=== PATIENT | female | born 1965 | race Two or more races ===

== ENCOUNTER 2022-11-26 15:59 | Emergency (ER) | payer MEDICAID, SELFPAY ==
[2022-11-26 16:06] VITALS: BP 198/90; PULSE 76; O2SAT 98
[2022-11-26 16:35] VITALS: BP 196/79; PULSE 78; RESP 18; TEMP 36.9; O2SAT 98; BMI 24.0
--- NOTE | 2022-11-26 16:38 | ED.GENADULT ---
HPI - General Adult General Chief complaint: General Medical Stated complaint: Hypertension, bp 198/90 Related Data Allergies Allergy/AdvReac Type Severity Reaction Status Date / Time No Known Allergies Allergy Unverified 11/03/19 15:49 [facility] Social History Social History Advance Directives: No Advance Directives Information Provided: No Physical Exam ED Vital Signs: BMI result Body Mass Index 24.0 Course Course Course Narrative: This is an RME: Additional HPI, ROS, PE not included below will be deferred to primary provider. This is a 47-[id number]-iot-female presenting to the ER with a complaint of hypertension and anxiety x 2 days. She states that she ran out of her medications 2 days ago. No chest pain or shortness of breath. Patient states that she has had increased anxiety and PTSD as her has been recently cut off her leg with a machete. Plan: Basic labs further ER evaluation needed. Reevaluation(s) Reevaluation #1: pt eloped prior to being fully evaluated by primary provider. Medical Decision Making Lab Data 11/26/22 17:14 11/26/22 17:14 Labs: Lab Results 11/26/22 Range/Units 17:14 WBC 9.8 (4.8-10.8) X10*3/uL RBC 4.36 (4.20-5.50) X10*6/uL Hgb 12.1 (12.0-16.0) g/dl Hct 36.8 L (37.0-47.0) % MCV 84.4 (80.0-98.0) fL MCH 27.8 (27.0-33.0) pg MCHC 32.9 (31.0-35.0) g/dl RDW 13.8 (11.0-16.0) % Plt Count 337 (160-400) X10*3/uL MPV 10.5 (9.4-12.3) fL Immature Gran % (Auto) 0.4 (0.0-0.4) % Neut % (Auto) 62.5 (45-73) % Lymph % (Auto) 28.2 (20-40) % Crook % (Auto) 5.9 (2-11) % Eos % (Auto) 2.2 (0-4) % Baso % (Auto) 0.8 (0-2) % Lymph # (Auto) 2.8 (1.2-4.9) X10*3/uL Crook # (Auto) 0.6 (0.1-1.2) X10*3/uL Eos # (Auto) 0.2 (0.0-0.4) X10*3/uL Baso # (Auto) 0.1 (0.0-0.2) X10*3/uL Abs Immat Gran (auto) 0.04 H (0.00-0.03) X10*3/uL Absolute Neuts (auto) 6.1 (2.0-8.3) x10*3/uL Absolute Nucleated RBC 0.000 (0.0-0.012) X10*3/uL Nucleated RBC % (auto) 0.0 (0.0-0.2) /100WBC Sodium 141 (135-145) mmol/L Potassium 4.1 (3.3-5.1) mmol/L Chloride 107 (96-108) mmol/L Carbon Dioxide 23 (22-29) mmol/L Anion Gap 15 (12-20) BUN 12 (9-16) mg/dL Creatinine 0.73 (0.5-1.4) mg/dL Estim Creat Clear Calc 75.1 Estimated GFR > 60 Random Glucose 100 (60-115) mg/dL Calcium 10.6 H (8.4-10.2) mg/dL Total Bilirubin 0.2 (0.0-1.0) mg/dL Direct Bilirubin < 0.2 (0.0-0.5) mg/dL AST 15 (5-31) U/L ALT 20 (0-31) U/L Alkaline Phosphatase 122 H (39-117) U/L Total Protein 8.6 H (6.5-8.0) g/dL Albumin 4.7 (3.5-5.0) g/dL Discharge Plan Discharge Clinical Impression: Anxiety Patient Disposition: Left W/O Completing Treatment Discharge Date/Time: 11/26/22 20:41
[2022-11-26 17:20] LABS: MANUAL DIFF FLAG NO
[2022-11-26 17:21] LABS: Basophils Absolute Auto 0.1 X10*3/uL (0.0-0.2); Basophils Percent Auto 0.8 % (0-2); Eosinophils Absolute Auto 0.2 X10*3/uL (0.0-0.4); Eosinophils Percent Auto 2.2 % (0-4); Hematocrit 36.8 % (37.0-47.0); Hemoglobin 12.1 g/dl (12.0-16.0); Imm Gran Abs Auto 0.04 X10*3/uL (0.00-0.03); Imm Gran Pct Auto 0.4 % (0.0-0.4); Lymphocytes Absolute Auto 2.8 X10*3/uL (1.2-4.9); Lymphocytes Percent Auto 28.2 % (20-40); Mean Corpuscular HGB Conc 32.9 g/dl (31.0-35.0); Mean Corpuscular Hemoglobin 27.8 pg (27.0-33.0); Mean Corpuscular Volume 84.4 fL (80.0-98.0); Mean Platelet Volume 10.5 fL (9.4-12.3); Monocytes Absolute Auto 0.6 X10*3/uL (0.1-1.2); Monocytes Percent Auto 5.9 % (2-11); Neutrophils Absolute Auto 6.1 x10*3/uL (2.0-8.3); Neutrophils Percent Auto 62.5 % (45-73); Platelet Count 337 X10*3/uL (160-400); Red Blood Count 4.36 X10*6/uL (4.20-5.50); Red Cell Distribution Width 13.8 % (11.0-16.0); White Blood Count 9.8 X10*3/uL (4.8-10.8)
[2022-11-26 17:35] LABS: Alanine Aminotransferase 20 U/L (0-31); Albumin Level 4.7 g/dL (3.5-5.0); Alkaline Phosphatase 122 U/L (39-117); Anion Gap 15 (12-20); Aspartate Amino Transferase 15 U/L (5-31); Bilirubin Direct < 0.2 mg/dL (0.0-0.5); Bilirubin Total 0.2 mg/dL (0.0-1.0); Blood Urea Nitrogen 12 mg/dL (9-16); Calcium 10.6 mg/dL (8.4-10.2); Carbon Dioxide 23 mmol/L (22-29); Chloride 107 mmol/L (96-108); Creatinine Clr Calc Pharmacy 75.1; Estimated Glomerular Filt Rate > 60; Glucose Random 100 mg/dL (60-115); Potassium 4.1 mmol/L (3.3-5.1); Sodium 141 mmol/L (135-145); Total Protein 8.6 g/dL (6.5-8.0)
[2022-11-26 19:35] VITALS: BP 178/88; PULSE 74; RESP 20; TEMP 36.6; O2SAT 94
== END 2022-11-26 20:41 | disposition left against medical advice (07) ==
PROVIDERS: Physician Assistant Medical; Emergency Provider Emergency Medicine
DX: F41.1 Generalized anxiety disorder (principal); F43.0 Acute stress reaction; Z79.899 Other long term (current) drug therapy
CPT/HCPCS: 36415; 80048; 80076; 85025; 99281; 99283

== ENCOUNTER 2024-10-25 16:35 | Emergency (ER) | payer MEDICAID, SELFPAY ==
[2024-10-25] VITALS (13 sets, daily range): BP systolic 118–191; BP diastolic 52–103; PULSE 60–69; RESP 9–20; TEMP 36.7–36.8; O2SAT 96–100; BMI 22.5
--- NOTE | ~2024-10-25 | XR_ITS ---
CLINICAL HISTORY: deformity Two views of the left elbow. COMPARISON: None provided. FINDINGS: There is anterior dislocation of the distal humerus from the proximal ulna. Mildly displaced fracture of the radial head and neck. Distal humerus and ulna appear intact. IMPRESSION: 1. Mildly displaced fracture of the radial head and neck. 2. Anterior dislocation of the distal humerus from the ulna. This document has been electronically signed by: Samir Gutiérrez MD on 10/25/2024 18:54:51
--- NOTE | ~2024-10-25 | XR_ITS ---
CLINICAL HISTORY: post reduction Three views of the left elbow. COMPARISON: XR left elbow dated 10/25/24 at 18:24 EDT FINDINGS: Interval reduction of the distal humerus now appropriately seated within the ulna. Distal humerus and ulna appear intact. Displaced longitudinal fracture of the radial head. There is displacement anteriorly by approximately 3 mm. Small bone fragment present along the anterior aspect of the elbow joint measuring 2 mm favored to originates from the radial head fracture. Radiocapitellar alignment appears maintained. Elevation of the anterior and posterior fat pads. IMPRESSION: 1. Interval reduction of the humerus now appropriately seated within the ulna. 2. Displaced radial head fracture. Small bone fragment present along the anterior aspect of the joint space likely originates from the radial head. This document has been electronically signed by: Samir Gutiérrez MD on 10/25/2024 20:36:00
--- NOTE | 2024-10-25 17:14 | PC.NURSE ---
Patient presents from home via EMS. History of a Left BKA. Patient was attempting to transfer from her W/C to the toilet when she slipped and landed on her left arm. Positive deformity noted to her left elbow. Positive radial pulse with good CSM. Respirations even and non-labored. Abdomen soft, non-tender with positive bowel sounds.
--- NOTE | 2024-10-25 18:40 | ED_ITS ---
HPI - General Adult General Chief complaint: General Medical Stated complaint: Fall wheelchair, L elbow deformity -LOC, -Thinner Time Seen by Provider: 10/25/24 16:47 History of Present Illness ED Provider: jay HPI narrative: 59 F with ROHIT fell from wheelchair forward onto the left forearm sustaining injury to the left elbow with severe pain no head strike. She forgot to put the brakes on 1 of the wheels of the wheelchair this is why she flung forward. Related Data Allergies Allergy/AdvReac Type Severity Reaction Status Date / Time No Known Allergies Allergy Verified 10/25/24 16:48 Physical Exam ED Exam Exam: EXAM: Gen: Alert, awake, appears in significant pain Head: Atraumatic Eyes: Anicteric, Normal conjunctiva. ENT: Moist mucosa, no pallor. ? Neck: Supple. Skin: ?No observable rash or bruising on exposed or examined skin Respiratory: Breathing comfortably, No distress.Clear to auscultation bilaterally, symmetric chest expansion, No wheeze, rales, ronchi. Cardiovascular: Regular rate and rhythm. No murmurs or rub. Well perfused periphery, warm extremities. No edema. ? Abdominal: No focal tenderness. Soft, no objective distension. No palpable masses or obvious organomegaly. ?No guarding, no rebound tenderness or other p eritoneal findings. : No flank tenderness. Neuro: Alert. Gross movement of all extremities intact. ? Psych: Calm. Cooperative. MSK: No grossly visible deformity. Left BKA. Left upper extremity: Pain with deformity of the left elbow with tenderness. Soft compartments in the forearm. Elbow exam consistent with posteriorly displaced elbow dislocation Vital signs: See flowsheet Vital Signs: Vital Signs - 24 hr 10/25/24 16:48 10/25/24 18:00 10/25/24 19:49 Temperature 98.3 F 98.1 F Pulse Rate 60 68 65 Respiratory Rate 20 20 20 Blood Pressure 118/57 L 118/57 L 163/64 H Pulse Oximetry 98 97 96 Oxygen Delivery Method Room Air Room Air 10/25/24 19:57 10/25/24 20:00 10/25/24 20:01 Temperature Pulse Rate 68 66 67 Respiratory Rate 9 L 10 L 11 L Blood Pressure 145/52 H 184/88 H 191/81 H Pulse Oximetry 97 96 98 Oxygen Delivery Method 10/25/24 20:02 10/25/24 20:06 10/25/24 20:09 Temperature 98.1 F 98.1 F Pulse Rate 69 68 67 Respiratory Rate 12 18 12 Blood Pressure 159/90 H 140/103 H 146/79 H Pulse Oximetry 98 99 100 Oxygen Delivery Method 10/25/24 20:16 10/25/24 21:46 10/25/24 21:50 Temperature 98.1 F 98.1 F 98.1 F Pulse Rate 67 67 67 Respiratory Rate 16 16 16 Blood Pressure 146/86 H 122/78 122/78 Pulse Oximetry 100 100 100 Oxygen Delivery Method Room Air Room Air Room Air BMI result Body Mass Index 22.5 Medications Administered Discontinued Medications Generic Name Dose Route Start Last Admin Trade Name Freq PRN Reason Stop Dose Admin Etomidate 10 mg 10/25/24 18:42 10/25/24 19:49 Etomidate 20 Mg/10 Ml Vial IVPUSH 10/25/24 18:43 10 mg ONCE ONE Administration Procedures Procedure Narrative Procedure Narrative: PROCEDURE NOTE Procedure: Joint reduction Performed by: Lorenzo Shay MD Indication: dislocation of left elbow Crucible Protocol: a time out was performed and the correct patient and site were verified Procedure: Neurovascular exam intact prior to joint reduction. Anesthesia/pain control with etomidate 10 mg . Reduction of the left elbow was accomplished via traction and direct manipulation . The joint was immobilized with a splint. Neurovascular exam intact after joint reduction. The patient tolerated the procedure well. Post reduction films obtained and demonstrated an adequate reduction. Complications: none ___ Procedure: Splint Placement Performed by: Lorenzo Shay MD Indication: Radial head fracture and olecranon dislocation ? The elbow was appropriately positioned. An orthoglass splint was applied. The elbow was neurovascularly intact following the procedure. The patient tolerated the procedure well. ___ PROCEDURE NOTE Procedure: Procedural Sedation Performed by:Lorenzo Shay MD Indications: Elbow reduction Crucible Protocol: a time out was performed and the correct patient and site were verified ? ASA Class: II Pre-anesthesia evaluation, including history, exam, and informed consent is documented in the ED note above. Monitoring: Continuous monitoring of heart rate, respiratory rate, pulse oximetry and ETCO2. Supplemental oxygen prior to and during procedure via nasal cannula. Resuscitation equipment available at the bedside during sedation. See nursing documentation for timing ? The patient received 10 mg of etomidate and dosages were recorded. The patient was recovered from the sedation without complication or incident. Patient returned to pre-sedation level of awareness. The monitoring was discontinued at this time. ? Post-anesthesia evaluation: Respiratory function, cardiovascular function, temperature, and mental status did return to pre-anesthetic state. Pain was controlled. The patient did tolerate p.o. ? Medical Decision Making Medical Decision Making MDM Narrative: Medical Decision Makin-year-old female with fall from wheelchair mechanical nonsyncopal with left FOOSH. Injury to the left elbow only which is the only area of pain and swelling. Her compartments are soft but she does have swelling about the elbow. She is neurovascularly intact. X-ray was consistent with radial head fracture and posterior dislocation of the olecranon. Patient was set up after a screening for procedural sedation which was effective and without complications see attached procedure notes. Post procedural neurovascular exam was normal and reassuring. Patient is not anticoagulated. Strict return precautions were discussed regarding signs or symptoms suggestive of compartment syndrome but I have low suspicion at this time. Orthopedic follow up. Posterior splint in place see procedure notes Preliminary Favored Differential Diagnosis: Nonsyncopal fall, elbow fracture dislocation, soft tissue injuries bruising among additional considered etiologies Testing Interpreted Independently: ?Elbow x-ray with posterior elbow dislocation Radiology or Lab testing Results Reviewed: ?See below for details Consults: ?See below for details Independent Historians/External Chart Reviews: ?See below for details Social Determinants of Health Impacting MDM/Planning: ?See below for details Discharge Plan Discharge Clinical Impression: Dislocated elbow, Closed fracture of radial head Patient Disposition: Home, Self-Care Instructions: Arm Fracture in Adults (DC), Elbow Fracture (ED) Additional Instructions: DISCHARGE DIAGNOSES: You fractured and dislocated your left elbow this was repaired with reduction and splinting a sling was placed HISTORY OF PRESENTATION: ?Fall from her wheelchair EMERGENCY DEPARTMENT COURSE,TESTS, TREATMENTS: While in the ED today you had an x-ray pre and post manipulation of your elbow to get it back into place DISCHARGE MEDICATIONS: ?[We have made no changes to your regular medication regimen] use Tylenol ibuprofen. FOLLOW-UP: ?Call your primary or general physician soon as possible to discuss your symptoms, your ED visit and to discuss follow up plans Call orthopedics for follow up INSTRUCTIONS ?& RETURN PRECAUTIONS: If any symptoms change first call your primary physician, if it is after-hours your primary doctors office should have a provider cert occupational therapy asst you can speak with. If the symptoms are severe or very concerning to you then call 911 or return to the ED. Keep your left arm elevated about heart level when you can not in place large bag of ice over the elbow 10 minutes at a time Lorenzo Shay MD Emergency Physician [facility] Referrals: [facility] [place] [facility] [Provider Group, Hand Surgery] Interventions: ED Discharge Assessment Last Done: 10/25/24 21:50 Discharge Date/Time: 10/25/24 21:50 Print Language: Croatian
[2024-10-25] MEDS: Etomidate 20 MG/10 ML VIAL 10 MG IVPUSH (19:49)
== END 2024-10-25 21:50 | disposition home or self-care (01) ==
PROVIDERS: Emergency Provider Emergency Medicine
DX: S52.122A Displaced fracture of head of left radius, initial encounter for closed fracture (principal); S43.005A Unspecified dislocation of left shoulder joint, initial encounter; M25.522 Pain in left elbow; W05.0XXA Fall from non-moving wheelchair, initial encounter; Z91.81 History of falling; Y93.9 Activity, unspecified; Y92.9 Unspecified place or not applicable; Y99.8 Other external cause status
CPT/HCPCS: 24620; 29105; 73070; 73080; 96374; 99284; 99285

== ENCOUNTER → 2024-10-25 18:24 | Outpatient (BNV) | payer MEDICAID, SELFPAY | PROVIDERS: Emergency Provider Emergency Medicine; Visit Provider Radiology Diagnostic Radiology | DX: M24.022 Loose body in left elbow (principal); S53.115A Anterior dislocation of left ulnohumeral joint, initial encounter | CPT/HCPCS: 73070; 73080 ==

== ENCOUNTER 2024-11-03 11:29 | Outpatient (REF) | payer MEDICAID, SELFPAY ==
--- NOTE | ~2024-11-03 | XR_ITS ---
EXAMINATION: XR ELBOW 3 VIEWS LEFT HISTORY: M25.529 - Pain in unspecified elbow COMPARISON: Comparison is made with the prior examination dated 10/25/2024. FINDINGS: Three views of the left elbow are submitted. Osseous mineralization is normal. Again seen is a fracture of the radial head and neck. There is slightly greater displacement of the fracture fragments than on the prior study. The joint spaces are preserved. The soft tissues are unremarkable. XR/XR elbow LT min 3V IMPRESSION: Fracture of the radial head and neck with slightly greater displacement than on the prior study. Electronically signed by: Lucian Lubin MD 11/03/2024 12:25 PM EDT
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
== END 2024-11-03 11:30 | disposition home or self-care (01) ==
LOC: HO.HOSX 11:29
PROVIDERS: Visit Provider Physician Assistant
DX: S52.122D Displaced fracture of head of left radius, subsequent encounter for closed fracture with routine healing (principal); S53.105D Unspecified dislocation of left ulnohumeral joint, subsequent encounter; W05.0XXD Fall from non-moving wheelchair, subsequent encounter
CPT/HCPCS: 73080; 99212

== ENCOUNTER 2024-11-03 11:45 | Outpatient (AMB) | payer MEDICAID, SELFPAY ==
--- NOTE | 2024-11-03 12:17 | A.OFFVIS_ITS ---
Vital Signs 11/03/24 12:45 Height 5 ft 4 in Weight 142 lb BMI 24.4 Intake Visit Reasons: ER FU - LT elbow dislocation- reduced at ED Intake Note: Ariane is a 59 year old female who presents today for a evaluation of her left elbow dislocation, DOI - 10/25/24. Patient reports she fell from her wheelchair forward onto the left forearm at home. She states that she forgot to put the brakes on 1 of the wheels of the wheelchair, which resulted her to fall forward. She states that she did go to [facility] [place] [facility] where they did x ray's. She states that her ROM is very limited due to the constant pain. Allergies No Known Allergies Allergy (Verified 11/03/24 12:45) HPI HPI ER FU - LT elbow dislocation- reduced at ED: Details: Ms. Olson is a 59-year-old right-hand dominant female who presents to the office today status post left elbow fracture dislocation that occurred on 10/25/2024. She reports that she fell from her wheelchair landing on her left forearm. She has a prosthetic right lower limb. She reports that she forgot to put the brakes on 1 side of the wheelchair resulting in her fall. X-rays obtained in the emergency department revealed a left elbow radial head fracture with elbow dislocation. She was reduced in the ED and placed in a posterior splint with instruction to follow up with orthopedics outpatient for further evaluation and treatment. Review of Systems Const All systems reviewed & are unremarkable except as noted in HPI and below Physical Exam Vital Signs: BMI result Body Mass Index 24.4 Const General: cooperative, healthy appearing and no acute distress Resp Effort & Inspection: normal respiratory effort and able to speak in complete sentences Extrem Other: Left upper extremity held in flexion. Patient is unable to perform pronation supination. She is able to slightly flex and extend with mild pain. She denies numbness or tingling. Radial pulse intact. Psych Appearance: grossly normal Mental Status: mental status grossly normal Attitude: cooperative Assessment & Plan Assessment & Plan (1) Closed fracture of radial head: Code(s): S52.123A - Displaced fracture of head of unspecified radius, initial encounter for closed fracture Category: Medical (2) Dislocated elbow: Code(s): S53.106A - Unspecified dislocation of unspecified ulnohumeral joint, initial encounter Category: Medical Plan Ms. Olson is a 59-year-old right-hand dominant female who presents to the office today status post left elbow fracture dislocation that occurred on 10/25/2024. She reports that she fell from her wheelchair landing on her left forearm. She has a prosthetic right lower limb. She reports that she forgot to put the brakes on 1 side of the wheelchair resulting in her fall. X-rays obtained in the emergency department revealed a left elbow radial head fracture with elbow dislocation. She was reduced in the ED and placed in a posterior splint with instruction to follow up with orthopedics outpatient for further evaluation and treatment. While in the office today, Dr. Key was available to see the patient with me in a collaborative treatment plan was created. A stat CT scan has been ordered and scheduled for 11/04/2024 at 16:00. CT scan is ordered to evaluate the integrity of the joint and surrounding structures and likely surgical planning. The patient was fit for an UltraSling with a pillow removed for more comfort. She will follow up on Thursday11/07/[address] Key in the office. X-rays of the left elbow which were obtained while in the office today and were reviewed by me, Amena Roberto PA-C, revealed displaced radial head fracture. Orders: Orders CT elbow LT wo IV con Today S52.123A - Displaced fracture of head of unspecified radius, initial encounter for closed fracture, S53.106A - Unspecified dislocation of unspecified ulnohumeral joint, initial encounter XR elbow LT min 3V Today M25.529 - Pain in unspecified elbow Coding Level of Care Code New Pt Level 4 (71961) Diagnoses Closed fracture of radial head S52.123A Dislocated elbow S53.106A
[2024-11-03 12:45] VITALS: BMI 24.4
== END 2024-11-03 13:09 | disposition home or self-care (01) ==
LOC: HO.HOS 11:46
PROVIDERS: Visit Provider Physician Assistant
DX: S52.122A Displaced fracture of head of left radius, initial encounter for closed fracture (principal); S53.102A Unspecified subluxation of left ulnohumeral joint, initial encounter
CPT/HCPCS: 99204

== ENCOUNTER → 2024-11-03 11:53 | Outpatient (BNV) | payer MEDICAID, SELFPAY | PROVIDERS: Visit Provider Radiology Diagnostic Radiology | DX: M25.522 Pain in left elbow (principal) | CPT/HCPCS: 73080 ==